=== PATIENT | female | born 1965 | race Caucasian/White ===

== ENCOUNTER 2019-10-15 15:19 | Inpatient (IN) | payer BC ==
[~2019-10-15] VITALS: Ht 172.7 cm; Wt 80.7 kg
--- NOTE | 2019-10-15 16:45 | NUR ---
ADMISSION TO REHAB UNIT. SEE ADMISSION PAPERWORK. NO SIGNS OF DISTRESS. CALL LIGHT WITHIN REACH.
[2019-10-15] MEDS ORDERED: ZYRTEC10 MG PO (17:38)
[2019-10-15] MEDS ORDERED: LASIX20 MG PO (17:39)
[2019-10-15] MEDS ORDERED: CHRONULAC30 ML PO (17:39)
[2019-10-15] MEDS ORDERED: ZOLOFT100 MG PO (17:40)
[2019-10-15] MEDS ORDERED: ZOFRAN ODT4 MG/UDTAB PO (17:40)
[2019-10-15] MEDS ORDERED: ESTRACE1 MG PO (17:41)
[2019-10-15] MEDS ORDERED: PROTONIX40 MG PO (17:41)
[2019-10-15] MEDS ORDERED: K-DUR20 MEQ PO (17:42)
[2019-10-15] MEDS ORDERED: ALDACTONE50 MG PO (17:42)
[2019-10-15] MEDS ORDERED: MIRAPEX0.125 MG PO (17:43)
[2019-10-15 17:55] VITALS: BP 148/94
--- NOTE | 2019-10-15 20:35 | NUR ---
PATIENT RECEIVED LAYING BED. VITAL SIGNS & ASSESSMENT DONE. NO C/O PAIN OR DISTRESS. BED LOW. CALL LIGHT WITHIN REACH. WILL CONTINUE TO MONITOR.
[2019-10-15 22:13] VITALS: BP 127/76
--- NOTE | 2019-10-16 03:33 | NUR ---
I have reviewed this patient and I concur with the Shift Assessment completed by the Licensed Practical Nurse today this shift.
--- NOTE | 2019-10-16 04:10 | NUR ---
PATIENT AWAKE USED CALL LIGHT FOR ASSIST ONTO BED BUSTOS. PATIENT HAD VOID & WATERY STOOL. PATIENT CLEANED. TURNED TO LEFT SIDE. BED LOW. CALL LIGHT WITHIN REACH. WILL CONTINUE TO MONITOR.
[2019-10-16 08:44] LABS: BASOPHILS 0.4 % (0-2); EOSINOPHILS 2.4 % (0-7); HEMATOCRIT 26.7 % (36.0-48.0); HEMOGLOBIN 8.7 g/dL (12-16); IMMATURE GRANULOCYTES 0.3 % (0-5); LYMPHOCYTES 25.9 % (15-50); MCH 34.4 pg (26.0-34.0); MCHC 32.6 g/dL (31.0-37.0); MCV 105.5 fL (80.0-100.0); MEAN PLATELET VOLUME 9.6 fL (7.4-10.4); MONOCYTES 6.9 % (2-11); NEUTROPHILS 64.1 % (40-80); PLATELET COUNT 123 10x3/uL (130-400); RBC 2.53 10x6/uL (4.00-5.40); RDW 16.7 % (11.5-14.5); WBC 7.4 10x3/uL (4.8-10.8)
[2019-10-16 08:53] LABS: ANION GAP 11.5 mmol/L (8-16); CALCIUM 8.5 mg/dL (8.5-10.1); CARBON DIOXIDE 24.9 mmol/L (21.0-32.0); POTASSIUM - SERUM 3.4 mmol/L (3.5-5.1)
[2019-10-16 09:41] VITALS: BP 136/85
[2019-10-16 13:55] VITALS: Ht 172.7 cm; Wt 80.7 kg
--- NOTE | 2019-10-16 14:51 | NUR ---
LAYING DOWN IN BED RESTING QUIETLY. ABDOMEN IS LARGE AND FIRM. IS A MAX ASST TO TRANSFER. MAE HAS SKIN TEAR AND IT WAS CLEANSED AND REDRESSED. EYE SCLERA IS YELLOW COLORED. 3+ EDEMA BOTH FEET. CALL LIGHT IN REACH
[2019-10-16 22:47] VITALS: BP 129/81
--- NOTE | 2019-10-16 23:50 | NUR ---
PT ASSISTED TO USE BEDPAN. VOIDED WITHOUT DIFFICULTY.
--- NOTE | 2019-10-17 02:36 | NUR ---
I have reviewed this patient and I concur with the Shift Assessment completed by the Licensed Practical Nurse today this shift.
[2019-10-17 08:00] VITALS: BP 121/72
--- NOTE | 2019-10-17 11:47 | NUR ---
HAS BEEN UP WORKING WITH THERAPY. DENIES NEEDS OR C/O.
--- NOTE | 2019-10-17 16:15 | NUR ---
BED BATH GIVEN. DSG TO BUTTOCKS CHANGED. SHE WAS INCONT OF STOOL. WOUNDS TO BUTTOCKS ARE ALMOST HEALED. MEPILEX RE-APPLIED AND PT PROPED UP ON SIDE. F/C DRAINING CLEAR YELLOW URINE.
--- NOTE | 2019-10-17 19:32 | NUR ---
PT IS RESTING IN BED WITH EYES OPEN. ALERT AND ORIENTED X 3. DEINES ACUTE DISCOMFORT AT THIS TIME. NO NEEDS VOICED. ABD NOTED TO BE DISTENTDED, AND MORE FIRM THAN YESTERDAY. SR'S ARE UP X 2 IN BED. CALL LIGHT AND BEDSIDE TABLE ARE WITHIN EASY REACH.
[2019-10-17 20:30] VITALS: BP 125/81
--- NOTE | 2019-10-17 22:07 | NUR ---
PT IS RESTING IN BED WITH EYES OPEN. ASSISTED ONTO BEDPAN FREQUENTLY. NO RESULTS MOST TIMES.
--- NOTE | 2019-10-18 00:43 | NUR ---
I have reviewed this patient and I concur with the Shift Assessment completed by the Licensed Practical Nurse today this shift.
--- NOTE | 2019-10-18 02:59 | NUR ---
PT ON AND OFF BEDPAN ALL NIGHT WITH ONLY DRIBBLES OF URINE NOTED. PT VOICING COMPLAINT OF URGENT NEED TO VOID, AND ELEVATED PAIN. NEW ORDER TO IN AND OUT CATH RECIEVED.
--- NOTE | 2019-10-18 03:04 | NUR ---
PT REFUSED IN AND OUT CATHETER.
--- NOTE | 2019-10-18 06:37 | NUR ---
PT RESTING IN BED WITH EYES OPEN. ASSISTED TO THE BEDPAN AT THIS TIME.
[2019-10-18 08:00] VITALS: BP 136/84
--- NOTE | 2019-10-18 14:04 | NUR ---
SITTING IN WC IN ROOM. HAS BEEN SITTING UP FOR A COUPLE OF HOURS AND IS TOLERATING IT WELL. HER ABD IS VERY DISTENDED AND HER APPETITE IS POOR. SHE STATES SHE FEELS FULL ALL THE TIME AND NOT HUNGRY. SHE IS A MAX X2 TRANSFER ASST. SHE HAS 3+ EDEMA TO BLE.
[2019-10-18 17:49] LABS: NITRITE NEGATIVE (NEGATIVE)
[2019-10-18 17:50] LABS: BILIRUBIN NEGATIVE (NEGATIVE); GLUCOSE NEGATIVE (NEGATIVE); KETONE NEGATIVE (NEGATIVE); UROBILINOGEN NORMAL (NORMAL)
--- NOTE | 2019-10-18 19:41 | NUR ---
PT IS RESTING IN BED WITH EYES OPEN. ALERT AND ORIENTED X 3. DENIES ACUTE PAIN OR DISCOMFORT AT THIS TIME. ABD IS ROUND AND MODERATELY HARD TO TOUCH FROM ASCITES. PT DENIES ANY NEEDS AT THIS TIME. SR'S ARE UP X 2 IN BED. CALL LIGHT AND BEDSIDE TABLE ARE WITHIN EASY REACH.
[2019-10-18 20:00] VITALS: BP 122/78
--- NOTE | 2019-10-18 22:58 | NUR ---
PT RESTING IN BED WITH EYES CLOSED. REQUESTS HELP TO TURN AND REPOSITION PRN.
--- NOTE | 2019-10-19 00:50 | NUR ---
I have reviewed this patient and I concur with the Shift Assessment completed by the Licensed Practical Nurse today this shift.
--- NOTE | 2019-10-19 04:38 | NUR ---
RESTING IN BED WITH EYES CLOSED.
[2019-10-19 08:00] VITALS: BP 126/81
[2019-10-19 08:02] LABS: BASOPHILS 0.3 % (0-2); EOSINOPHILS 2.9 % (0-7); HEMATOCRIT 25.4 % (36.0-48.0); HEMOGLOBIN 8.6 g/dL (12-16); IMMATURE GRANULOCYTES 0.3 % (0-5); LYMPHOCYTES 26.4 % (15-50); MCH 35.1 pg (26.0-34.0); MCHC 33.9 g/dL (31.0-37.0); MCV 103.7 fL (80.0-100.0); MEAN PLATELET VOLUME 8.9 fL (7.4-10.4); MONOCYTES 8.1 % (2-11); RBC 2.45 10x6/uL (4.00-5.40); RDW 16.6 % (11.5-14.5); WBC 6.6 10x3/uL (4.8-10.8)
[2019-10-19 08:11] LABS: PLATELET COUNT 98 10x3/uL (130-400)
[2019-10-19 08:22] LABS: ANION GAP 12.2 mmol/L (8-16); CALCIUM 8.3 mg/dL (8.5-10.1); CARBON DIOXIDE 23.6 mmol/L (21.0-32.0); CREATININE - SERUM 0.9 mg/dL (0.6-1.3); POTASSIUM - SERUM 3.8 mmol/L (3.5-5.1)
[2019-10-19 09:34] LABS: INR 1.75 (0.85-1.17); PROTIME 20.2 SECONDS (11.6-15.0)
[2019-10-19 10:51] LABS: PLATELET ESTIMATE DECREASED
[2019-10-19 10:52] LABS: ANISOCYTOSIS OCC; HYPOCHROMASIA OCC; POLYCHROMASIA OCC; ROULEAUX OCC
--- NOTE | 2019-10-19 16:42 | RHP ---
PATIENT: MANDI LEHMAN MEDICAL RECORD: [id number] ACCOUNT: [id number] LOCATION:[id number] : 65 ADMISSION DATE: 10/15/19 REHABILITATION HISTORY AND PHYSICAL EXAMINATION POST ADMISSION PHYSICIAN EXAMINATION ADMITTING DIAGNOSIS: Alcohol-induced myopathy. HISTORY OF PRESENT ILLNESS: The patient is a 53-year-old female patient brought in via EMS secondary to liver failure secondary to alcohol use. She stated that she has been walking at home and using a rolling walker to get around, but had gotten progressively weaker over the previous couple of weeks to the point she was falling. She had a fall on the day of her acute hospital admit, was unable to get up or bear weight. She hit her head. She caused an abrasion to her occipital region, but no loss of consciousness. She was last seen in the hospital in August at EMS where she was started on Lasix, spironolactone, lactulose at this time. States that her last alcohol intake was in June. She is currently being monitored closely for lab values, cognition, medication adjustment, monitoring, pain control. She has got decreased activity tolerance. She has got balance disturbance and decreased range of motion, decreased strength, impaired mobility, dyspnea on exertion, high fall risk and self-care deficits. These are all barriers to her discharge home. Lives at home alone, was independent with ADLs and mobility prior to this. She is currently set up for mod assist with ADLs and mod assist with mobility and has lower extremity weakness and feels like her legs are going to give out with her. She and her family would like for her to return home at her prior level of functioning or better. COMORBIDITIES: Include chronic liver failure, acute fall, macrocytic anemia, abnormal liver values, elevated CK, pleural effusion, weakness, proximal muscle weakness. She had a history of alcohol addiction and abuse, elevated ammonia. PAST MEDICAL HISTORY: Significant for alcohol addiction, blood transfusion; gastroesophageal reflux disease and hypertension. PAST SURGICAL HISTORY: Includes breast reduction. She has had a D&C of her uterus, hysterectomy and ovary removed. ALLERGIES: DILAUDID. CURRENT MEDICATIONS: Include estradiol 1 mg daily, potassium 20 mEq daily, Zoloft 100 mg daily, she is on fexofenadine 60 mg b.i.d., spironolactone 50 mg daily, lactulose 30 cc t.i.d., furosemide 20 mg b.i.d., Mirapex 0.125 mg bedtime and Zofran p.r.n. nausea and vomiting. HABITS: No current alcohol or tobacco use. She did last drink back in June. FAMILY HISTORY: Noncontributory. SOCIAL HISTORY: The patient hopes to return back home and get back to her prior level of functioning. REVIEW OF SYSTEMS: GENERAL: Does complain of weakness and fatigue. HEENT: Denies cold, cough, or congestion. HISTORY AND PHYSICAL [id number] MANDI LEHMAN CARDIOVASCULAR: Denies chest pain. PHYSICAL EXAMINATION: VITAL SIGNS: Stable, afebrile. GENERAL: A well-developed female in no acute distress upon exam. HEENT: Normocephalic and atraumatic. Mucosa moist. NECK: Supple. No lymphadenopathy. LUNGS: Clear in upper miller. HEART: Regular rate and rhythm. No murmurs, rubs, or gallops. ABDOMEN: Soft, benign, and nondistended. She does have hepatosplenomegaly appreciated. EXTREMITIES: No clubbing, cyanosis or edema. NEUROLOGIC: She is a little bit slow to mentate, but mainly intact. LABORATORY DATA: Her white count is 7.4, H&H of 8.6 and 26.7 and platelet count was noted to be 123, MCV is 105.5. Her chemistries are pending. ASSESSMENT: This is a 53-year-old female patient admitted to rehab with a working diagnosis of alcohol-induced myopathy. The patient has potential to make improvement. We instituted the following multidisciplinary therapies including, but not limited to physical, occupational, respiratory, speech, nutritional services, prosthetics and orthotics. Given her complex medical conditions and risks for more complications, rehabilitation services cannot be provided at a low level of care such as skilled nurse facility. PLAN: 1. [facility] therapy to include the following disciplines; A. Physical therapy to improve gait, all transfer skills and bed mobility to a modified independent level. B. Occupational therapy to a modified independent level. C. Case management to assist with discharge planning and placement options. D. Nutrition to assist with nutritional needs. E. Rehabilitation nursing to assist in monitoring the patient's underlying medical conditions and to assist with any type of bowel or bladder management. 2. The patient's current medication and medical care will be continued. 3. The patient will be placed on standard fall precautions. 4. The patient's estimated length of stay is approximately 7-10 days. 5. We will discuss the patient during care team staff meeting this week and we will see again in the a.m. TRANSINT:[id number] Voice Confirmation ID: [id number] DOCUMENT ID: [id number] [facility] notes whether there has been none or any medical/functional change since admission: - No change since pre-admission screen. [facility] attests patient continues to be appropriate for IRF: - Continues to be appropriate. HISTORY AND PHYSICAL [id number] MANDI LEHMAN,NATALIIA GARCIA MD at 1642 CC: [id number] DICTATION DATE: 10/16/19 0857 EMBEDDED LINUX ENGINEER: 10/16/19 1045 ADM IN [address] [address]
--- NOTE | 2019-10-19 18:29 | NUR ---
SITTING UP IN BED WORKING ON PUZZLE. ATE SUPPER AND KNOWS SHE WILL BE NPO TONIGHT FOR PARACENTESIS TOMORROW. ABD VERY LARGE AND FIRM. CALL LIGHT IN REACH
--- NOTE | 2019-10-19 19:30 | NUR ---
PT IS RESTING IN BED WITH EYES OPEN. ALERT AND ORIENTED X 3. DENIES ACUTE PAIN OR DISCOMFORT AT THIS TIME. NO NEEDS VOICED. ABDOMEN IS DISTENDED AND FIRM TO THE TOUCH. PT HAPPY TO BE SCHEDULED FOR A PARACENTESIS TOMORROW. SR'S ARE UP X 2 IN BED. CALL LIGHT AND BEDSIDE TABLE ARE WITHIN EASY REACH.
--- NOTE | 2019-10-19 21:57 | NUR ---
PT ASSISTED TO TURN AND REPOSITION IN BED. NO FURTHER NEEDS VOICED.
[2019-10-19 22:21] VITALS: BP 135/81
[2019-10-20] VITALS (8 sets, daily range): BP systolic 98–123; BP diastolic 59–76
--- NOTE | 2019-10-20 00:29 | NUR ---
I have reviewed this patient and I concur with the Shift Assessment completed by the Licensed Practical Nurse today this shift.
--- NOTE | 2019-10-20 04:40 | NUR ---
RESTING IN BED WITH EYES CLOSED.
[2019-10-20 07:16] LABS: BASOPHILS 0.5 % (0-2); EOSINOPHILS 2.4 % (0-7); HEMATOCRIT 24.1 % (36.0-48.0); HEMOGLOBIN 8.1 g/dL (12-16); IMMATURE GRANULOCYTES 0.3 % (0-5); LYMPHOCYTES 27.9 % (15-50); MCH 34.6 pg (26.0-34.0); MCHC 33.6 g/dL (31.0-37.0); MEAN PLATELET VOLUME 9.3 fL (7.4-10.4); MONOCYTES 8.4 % (2-11); NEUTROPHILS 60.5 % (40-80); PLATELET COUNT 96 10x3/uL (130-400); RBC 2.34 10x6/uL (4.00-5.40); RDW 16.5 % (11.5-14.5); WBC 6.2 10x3/uL (4.8-10.8)
[2019-10-20 07:34] LABS: ALBUMIN 1.8 g/dL (3.4-5.0); ANION GAP 9.7 mmol/L (8-16); BILIRUBIN - TOTAL 3.83 mg/dL (0.2-1.3); CALCIUM 8.5 mg/dL (8.5-10.1); CARBON DIOXIDE 25.2 mmol/L (21.0-32.0); CREATININE - SERUM 0.9 mg/dL (0.6-1.3); POTASSIUM - SERUM 3.9 mmol/L (3.5-5.1); PROTEIN - SERUM 5.7 g/dL (6.4-8.2)
--- NOTE | 2019-10-20 08:00 | NUR ---
SHIFT ASSMT COMPLETED.CL IN REACH.
[2019-10-20 08:30] LABS: APTT 40.5 SECONDS (22.8-39.4); INR 1.68 (0.85-1.17); PROTIME 19.6 SECONDS (11.6-15.0)
--- NOTE | 2019-10-20 19:28 | NUR ---
AWAKE AND ALERT. RESTING IN BED WITH RESPIRATIONS UNALBORED. SALINE LOCK INTACT TO LEFT HAND WITH NO SIGNS OF INFILTRATION. SKIN TONE IS JAUNDICED. HAD PARENTCENTISIS TODAY AND IT WAS REPORTTED THAT SHE HAD 8.1 LITERS REMIVED. PARENCENTISIS SITE INTACT. NO ACUTE DISTRESS NOTED.
--- NOTE | 2019-10-21 00:44 | NUR ---
CONTINUES RESTING IN BED WITH NO DISTRESS NOTED.
--- NOTE | 2019-10-21 05:08 | NUR ---
QUIET HOURS. NO ACUTE CHANGES IN CONDITION THIS SHIFT. SALINE LOCK INTACT IN LEFT HAND. NO DISTRESS NOTED.
[2019-10-21 08:00] VITALS: BP 90/53
--- NOTE | 2019-10-21 08:00 | NUR ---
REPORT RECIEVED,BREAKFAST GIVEN.CL IN REACH.
--- NOTE | 2019-10-21 16:08 | NUR ---
Nutrition Follow-up: Discussed in careteam meeting. Pt has 8.3L removed via paracentesis yesterday. Diet: Regular PO intake: 100% x 1 meal recorded Last BM: 10/18/19. WT: 178# (10/16/19) Meds noted: lactulose, lasix. Labs reviewed. Recommend continue current diet. RD following.
--- NOTE | 2019-10-21 16:28 | NUR ---
CLINICAL UPDATES FAXED TO [facility] , AUTH. # [id number] WITH CONFORMATION RECIEVED.
--- NOTE | 2019-10-21 20:00 | NUR ---
PATIENT RECEIVED SITTING UP IN WHEELCHAIR. ASSESSMENT & VITAL SIGNS DONE. NO C/O PAIN OR DISTRESS. BED LOW. CALL LIGHT WITHIN REACH. WILL CONTINUE TO MONITOR.
[2019-10-21 22:11] VITALS: BP 119/69
--- NOTE | 2019-10-22 03:48 | NUR ---
PATIENT EYES CLOSED. RESPIRATIONS 18 & EVEN. BED LOW. ALARM ON. CALL LIGHT WITHIN REACH. WILL CONTINUE TO MONITOR.
--- NOTE | 2019-10-22 04:37 | NUR ---
I have reviewed this patient and I concur with the Shift Assessment completed by the Licensed Practical Nurse today this shift.
[2019-10-22 08:43] VITALS: BP 113/70
--- NOTE | 2019-10-22 15:24 | NUR ---
WALKING IN MENESES WITH THERAPY
--- NOTE | 2019-10-22 17:48 | NUR ---
SITTING IN WC IN ROOM EATING SUPPER. ABD IS SOFTER AND SMALLER IN SIZE SINCE PARACENTESIS. HER APPETITE IS BETTER BUT BOTH ANKLES STILL HAVE 4+ EDEMA TO THEM. CALL LIGHT IN REACH
--- NOTE | 2019-10-22 19:49 | NUR ---
PATIENT RECEIVED SITTING UP IN WHEELCHAIR. ASSESSMENT & VITAL SIGNS DONE. PATIENT TOILETED & RETURNED TO HER LOW BED. ALARM ON. CALL LIGHT WITHIN REACH. WILL CONTINUE TO MONITOR.
[2019-10-22 22:10] VITALS: BP 118/69
[2019-10-23] VITALS (7 sets, daily range): BP systolic 91–125; BP diastolic 49–69
--- NOTE | 2019-10-23 02:56 | NUR ---
I have reviewed this patient and I concur with the Shift Assessment completed by the Licensed Practical Nurse today this shift.
[2019-10-23 07:38] LABS: CALCIUM 8.3 mg/dL (8.5-10.1); CARBON DIOXIDE 25.9 mmol/L (21.0-32.0); CREATININE - SERUM 0.9 mg/dL (0.6-1.3); POTASSIUM - SERUM 3.9 mmol/L (3.5-5.1)
[2019-10-23 07:55] LABS: BASOPHILS 0.5 % (0-2); EOSINOPHILS 2.3 % (0-7); HEMATOCRIT 24.3 % (36.0-48.0); HEMOGLOBIN 8.1 g/dL (12-16); IMMATURE GRANULOCYTES 0.2 % (0-5); LYMPHOCYTES 27.2 % (15-50); MCH 34.5 pg (26.0-34.0); MCHC 33.3 g/dL (31.0-37.0); MCV 103.4 fL (80.0-100.0); MEAN PLATELET VOLUME 9.8 fL (7.4-10.4); MONOCYTES 7.2 % (2-11); NEUTROPHILS 62.6 % (40-80); PLATELET COUNT 106 10x3/uL (130-400); RBC 2.35 10x6/uL (4.00-5.40); RDW 16.4 % (11.5-14.5)
--- NOTE | 2019-10-23 11:04 | NUR ---
RECIEVED CALL THAT PATIENT HAS BEEN APPROVED FOR 7 MORE DAYS PER VANESSA AT [facility] ( [facility]) UPDATES DUE 10/28/19. WILL CONTINUE TO FOLLOW WITH PATIENT.
--- NOTE | 2019-10-23 14:06 | NUR ---
CARE TEAM MEETING: PATIENT IS PROGRESSING IN THERAPY. TENATIVE DISCHARGE DATE IS 10/31/19. WILL CONTINUE TO FOLLOW WITH PATIENT.
--- NOTE | 2019-10-23 15:03 | NUR ---
IN THERAPY. HAS BEEN UP IN WC MOST OF DAY SITTING IN HER ROOM. DENIES INCREASING PAIN. ABD STILL MUCH FLATTER. SHE DENIES SOB. ANKLES STILL HAVE4+ EDEMA TO THEM.
--- NOTE | 2019-10-23 19:00 | NUR ---
PT IS RESTING IN BED WITH EYES OPEN. ALERT AND ORIENTED X 3. DENIES ACUTE DISCOMFORT AT THIS TIME. PT STATES SHE IS DOING MUCH BETTER SINCE THE ABDOMINAL FLUID WAS REMOVED THIS WEEK. CONSENT FOR BLOOD TRANSFUSION SIGNED AT THIS TIME. SR'S ARE UP X 2 IN BED. CALL LIGHT AND BEDSIDE TABLE ARE WITHIN EASY REACH.
--- NOTE | 2019-10-23 19:45 | NUR ---
PT RESTING IN BED WITH EYES OPEN. 1ST UNIT OF BLOOD STARTED AT THIS TIME. VSS. NO IMMEDIATE REACTION NOTED.
--- NOTE | 2019-10-23 20:00 | NUR ---
PT RESTING IN BED WITH EYES OPEN. VSS. NO ADVERSE REACTIONS TO BLOOD TRANSFUSION NOTED.
--- NOTE | 2019-10-23 21:25 | NUR ---
1ST UNIT OF BLOOD FINISHED. VSS. NO ADVERSE REACTION NOTED.
--- NOTE | 2019-10-23 22:00 | NUR ---
SECOND UNIT OF BLOOD HUNG AT THIS TIME. VSS. NO ADVERSE REACTION NOTED.
--- NOTE | 2019-10-23 23:15 | NUR ---
PT RESTING IN BED WITH EYES CLOSED. BLOOD INFUSING WITHOUT DIFFICULTY. VSS. NO ADVERSE REACTION NOTED.
--- NOTE | 2019-10-24 00:19 | NUR ---
I have reviewed this patient and I concur with the Shift Assessment completed by the Licensed Practical Nurse today this shift.
[2019-10-24 00:30] VITALS: BP 105/59
--- NOTE | 2019-10-24 00:30 | NUR ---
BLOOD FINISHED AT THIS TIME. NO ADVERSE REACTION NOTED. VSS.
--- NOTE | 2019-10-24 04:32 | NUR ---
RESTING IN BED WITH EYES CLOSED.
[2019-10-24 07:00] VITALS: BP 130/78
--- NOTE | 2019-10-24 07:40 | NUR ---
A/A/OX4. SITTING UP IN BED WATCHING TV AND VOICES NOT COMPLAINTS OR REQUESTS. ASSESSMENT COMPLETED AND WILL CONTINUE POC. ASSISTED UP TO W/C AND TO BATHROOM AND DID WELL WITH MINIMAL ASST. SL PATENT TO LEFT AC WITH SOME BRUISING AT SITE. NOTED TO HAVE 4+ DEPENDENT EDEMA BLE. SIDERAILS UP X 2, BED IN LOWEST POSITION AND CALL LIGHT IN REACH.
--- NOTE | 2019-10-24 15:10 | NUR ---
I have reviewed this patient and I concur with the Shift Assessment completed by the Licensed Practical Nurse today this shift.
--- NOTE | 2019-10-24 19:37 | NUR ---
PT IS RESTING IN BED WITH EYES OPEN. ALERT AND ORIENTED X 3. DENIES ACUTE PAIN OR DISCOMFORT AT THIS TIME. PT DENIES PAIN OR DISCOMFORT. SR'S ARE UP X 2 IN BED. CALL LIGHT AND BEDSIDE TABLE ARE WITHIN EASY REACH.
[2019-10-24 20:47] VITALS: BP 131/79
--- NOTE | 2019-10-24 22:15 | NUR ---
PT RESTING IN BED WITH EYES CLOSED. NO DISTRESS NOTED.
--- NOTE | 2019-10-25 01:00 | NUR ---
I have reviewed this patient and I concur with the Shift Assessment completed by the Licensed Practical Nurse today this shift.
--- NOTE | 2019-10-25 02:07 | NUR ---
PT VOICING COMPLAINT OF REFLUX. ONE TIME DOSE OF CARAFATE GIVEN PER RECOMENDATION OF THE ER DOCTOR. THIS HAS NOT HELPED. SHE IS VOICING COMPLAINT OF MORE AND MORE PAIN. DR ORNELAS CALLED. I RECIEVED HIS VOICE MAIL ONLY. MESSAGE LEFT. AFTER HOURS NUMBER CALLED. THEY ARE PAGING KAREN PEREZ APN TO CALL ME NOW.
--- NOTE | 2019-10-25 02:48 | NUR ---
[facility] CALLED: RE NO CALL FROM KAREN PEREZ. I ASKED HIM TO PAGE HER AGAIN, SINCE SHE HAS NOT CALLED. THE PHONE WENT IMMEDIATELY TO A BUSY SIGNAL.
[2019-10-25 03:36] VITALS: BP 112/74
--- NOTE | 2019-10-25 05:56 | NUR ---
PT RESTING IN BED WITH EYES OPEN. VOICED COMPLAINT OF VARYING ABD PAIN LEVEL OF 5-9 OFF AND ON. SHE STATED SHE DID FALL ASLEEP FOR A LITTLE WHILE. NO CALL BACK RECIEVED FROM MD OR MANAGER DEVELOPMENTAL.
[2019-10-25 10:08] VITALS: BP 103/57
--- NOTE | 2019-10-25 14:30 | NUR ---
I have reviewed this patient and I concur with the Shift Assessment completed by the Licensed Practical Nurse today this shift.
--- NOTE | 2019-10-25 19:35 | NUR ---
PT IS RESTING IN BED WITH EYES OPEN. SHE STATES SHE HAS BEEN HURTING ALL DAY, BUT FEELS MUCH BETTER THAN LAST NIGHT. SHE STATES DR ORNELAS TOLD HER HE WOULD DO A ABD. ULTRASOUND IN THE AM, WITH A POSSIBLE PERICENTESIS. NO NEEDS VOICED AT THIS TIME. SR'S ARE UP X 2 IN BED. CALL LIGHT AND BEDSIDE TABLE ARE WITHIN EASY REACH.
[2019-10-25 20:30] VITALS: BP 125/75
--- NOTE | 2019-10-25 23:36 | NUR ---
RESTING IN BED WITH EYES CLOSED.
--- NOTE | 2019-10-26 01:07 | NUR ---
I have reviewed this patient and I concur with the Shift Assessment completed by the Licensed Practical Nurse today this shift.
--- NOTE | 2019-10-26 05:55 | NUR ---
PT RESTING IN BED WITH EYES OPEN. NO NEEDS VOICED.
[2019-10-26 07:47] LABS: BASOPHILS 0.4 % (0-2); EOSINOPHILS 2.5 % (0-7); HEMATOCRIT 28.2 % (36.0-48.0); HEMOGLOBIN 9.6 g/dL (12-16); IMMATURE GRANULOCYTES 0.1 % (0-5); LYMPHOCYTES 22.9 % (15-50); MCH 33.4 pg (26.0-34.0); MCV 98.3 fL (80.0-100.0); MEAN PLATELET VOLUME 9.5 fL (7.4-10.4); MONOCYTES 8.1 % (2-11); PLATELET COUNT 88 10x3/uL (130-400); RBC 2.87 10x6/uL (4.00-5.40); RDW 17.5 % (11.5-14.5); WBC 6.9 10x3/uL (4.8-10.8)
[2019-10-26 07:51] LABS: ANION GAP 8.4 mmol/L (8-16); CALCIUM 8.5 mg/dL (8.5-10.1); CARBON DIOXIDE 25.1 mmol/L (21.0-32.0); CREATININE - SERUM 0.9 mg/dL (0.6-1.3); POTASSIUM - SERUM 3.5 mmol/L (3.5-5.1)
[2019-10-26 08:14] VITALS: BP 122/67
[2019-10-26 08:33] LABS: PLATELET ESTIMATE DECREASED
[2019-10-26 09:54] LABS: INR 1.8 (0.85-1.17); PROTIME 20.6 SECONDS (11.6-15.0)
--- NOTE | 2019-10-26 15:03 | NUR ---
STILL NPO FOR ABD ULTRASOUND. NURSE HAS FOLLOW UP WITH US TO SEE ABOUT APPX TIME AND IT IS STILL UNKNOWN. PT ABD IS GETTING LARGER SINCE LAST PARACENTESIS AND SHE C/O DISCOMFORT.
--- NOTE | 2019-10-26 15:16 | NUR ---
Nutrition Follow-up: Diet: Regular PO intake: none recorded recently, was ~54% average x last 6 meals recorded. She states that her appetite is "better." States that she has been ordering Ensure with her Breakfast tray from her menu. Last BM: 10/26/19. WT: 178# (10/16/19), no new weight Meds noted: lactulose, lasix. Labs reviewed- ammonia WNL now. Recommend continue current diet. She will order Ensure from menu when she feels like she needs it. Recommend getting new weight on patient. RD will continue to follow.
--- NOTE | 2019-10-26 20:00 | NUR ---
PT IS RESTING QUIETLY IN BED WITH EYES OPEN. ALERT AND ORIENTED X 3. DENIES ACUTE DISCOMFORT AT THIS TIME. NO SOB NOTED. ABD IS DISTENDED AND FIRM TO TOUCH. 4 + EDEMA NOTED TO BLE. PT ENCOURAGED TO KEEP FEET ELEVATED ON PILLOWS MUCH POSSIBLE. SR'S ARE UP X 2 IN BED. CALL LIGHT AND BEDSIDE TABLE ARE WITHIN EASY REACH.
[2019-10-26 20:52] VITALS: BP 144/85
--- NOTE | 2019-10-26 22:40 | NUR ---
PT IS RESTING QUIETLY IN BED WITH EYES CLOSED. NO ACUTE DISTRESS NOTED.
--- NOTE | 2019-10-27 00:21 | NUR ---
I have reviewed this patient and I concur with the Shift Assessment completed by the Licensed Practical Nurse today this shift.
--- NOTE | 2019-10-27 04:02 | NUR ---
PT RESTING IN BED WITH EYES OPEN. NO NEEDS VOICED.
[2019-10-27 07:15] LABS: INR 1.76 (0.85-1.17); PROTIME 20.3 SECONDS (11.6-15.0)
[2019-10-27 07:52] VITALS: BP 107/74
--- NOTE | 2019-10-27 14:11 | NUR ---
SITTING UP IN WC IN ROOM VISITING WITH PARENTS. DENIES NEEDS OR C/O
--- NOTE | 2019-10-27 15:16 | NUR ---
CLINICAL UPDATES FAXED TO [employer] FOR AN EXTENTION OF STAY, AUTH. # [id number], WITH CONFORMATION RECIEVED.
--- NOTE | 2019-10-27 18:30 | NUR ---
HAS BEEN UP IN WC FOR MOST OF DAY. TOILETED HER SELF WITH NO ASST. ABD STILL DISTENDED.
--- NOTE | 2019-10-27 19:40 | NUR ---
AWAKE AND ALERT. RESTING IN BED WITH RESPIRATIONS UNLABORED. SKIN JAUNDICED. ABDOMEN DISTENDED AND SEMI0-FIRM. 4+ EDEMA NOTED IN BILATERAL LOWER EXTREMITIES. NO ACUTE DISTRESS NOTED. CALL LIGHT IN REACH.
[2019-10-27 21:04] VITALS: BP 118/75
--- NOTE | 2019-10-28 00:57 | NUR ---
ASSISTED TO BATHROOM AND BACK TO BED. NO ACUTE DISTRESS NOTED. CALL LIGHT IN REACH.
--- NOTE | 2019-10-28 03:11 | NUR ---
CONTINUES SLEEPING WITH NO DISTRESS NOTED.
--- NOTE | 2019-10-28 05:34 | NUR ---
QUIET HOURS. RESTING IN BED WITH RESPIRATIONS UNLABORED. NPO FOR NOW PENDING AM PROCEDURE. LAB RESULTS PENDING. WILL MONITOR. NO DISTRESS NOTED.
[2019-10-28 06:18] LABS: BASOPHILS 0.3 % (0-2); EOSINOPHILS 2.4 % (0-7); HEMATOCRIT 29.8 % (36.0-48.0); HEMOGLOBIN 9.8 g/dL (12-16); IMMATURE GRANULOCYTES 0.2 % (0-5); MCH 33.1 pg (26.0-34.0); MCHC 32.9 g/dL (31.0-37.0); MEAN PLATELET VOLUME 9.4 fL (7.4-10.4); NEUTROPHILS 61.1 % (40-80); PLATELET COUNT 83 10x3/uL (130-400); RBC 2.96 10x6/uL (4.00-5.40); RDW 17.2 % (11.5-14.5); WBC 5.7 10x3/uL (4.8-10.8)
[2019-10-28 06:20] LABS: MCV 100.7 fL (80.0-100.0)
[2019-10-28 06:47] LABS: ANION GAP 9.1 mmol/L (8-16); CALCIUM 8.3 mg/dL (8.5-10.1); CREATININE - SERUM 0.9 mg/dL (0.6-1.3)
[2019-10-28 06:54] LABS: PLATELET ESTIMATE DECREASED
[2019-10-28 07:02] LABS: PROTIME 20.1 SECONDS (11.6-15.0)
[2019-10-28 07:06] LABS: POTASSIUM - SERUM 4.1 mmol/L (3.5-5.1)
[2019-10-28 07:13] LABS: INR 1.73 (0.85-1.17)
[2019-10-28 07:57] VITALS: BP 133/61
--- NOTE | 2019-10-28 08:00 | NUR ---
REPORT RECIEVED THIS AM.BREAKFAST GIVEN.CL IN REACH.
--- NOTE | 2019-10-28 15:00 | NUR ---
Nutrition Follow-up: Diet: Regular PO intake: ~54% average x last 6 meals. She was OOR today when I went to go visit her but yesterday she told me that she has been ordering and drinking Ensure. Last BM: 10/26/19. WT: 178# (10/16/19), no new weight Meds noted: lasix, lactulose. Labs reviewed Will add Ensure with meals to diet order. Recommend continue current diet. Encourage PO intake. RD following.
--- NOTE | 2019-10-28 20:34 | NUR ---
AWAKE AND ALERT. RESTING IN BED. 2 UNITS FFP'S INFUSING TO SITE IN RIGHT ARM WITH NO SINGS OF INFILTRATION. NO ADVERSE REACTION NOTED. RESPRIATIONS UNLABORED. AFEBRILE. CALL LIGHT IN REACH.
[2019-10-28 22:06] VITALS: BP 100/59
[2019-10-29] VITALS (7 sets, daily range): BP systolic 97–137; BP diastolic 52–74
--- NOTE | 2019-10-29 01:19 | NUR ---
RESTING IN BED WITH RESPIRATIONS UNLABORED. NO DISTRESS NOTED. CALL LIGHT IN REACH.
--- NOTE | 2019-10-29 05:24 | NUR ---
QUIET HOURS. RESTING IN BED. NPO FOR POSSIBLE PROCEDURE THIS AM. NO ACUTE CHANGES IN CONDITION THIS SHIFT. NO DISTRESS NOTED.
[2019-10-29 06:04] LABS: BASOPHILS 0.4 % (0-2); HEMATOCRIT 30.3 % (36.0-48.0); HEMOGLOBIN 9.9 g/dL (12-16); IMMATURE GRANULOCYTES 0.2 % (0-5); LYMPHOCYTES 28.6 % (15-50); MCH 33.1 pg (26.0-34.0); MCHC 32.7 g/dL (31.0-37.0); MCV 101.3 fL (80.0-100.0); MONOCYTES 7.1 % (2-11); NEUTROPHILS 61.7 % (40-80); PLATELET COUNT 94 10x3/uL (130-400); RBC 2.99 10x6/uL (4.00-5.40); WBC 5.4 10x3/uL (4.8-10.8)
[2019-10-29 06:15] LABS: APTT 39.1 SECONDS (22.8-39.4); INR 1.47 (0.85-1.17); PROTIME 17.7 SECONDS (11.6-15.0)
[2019-10-29 06:19] LABS: ANION GAP 8.5 mmol/L (8-16); CALCIUM 8.7 mg/dL (8.5-10.1); CARBON DIOXIDE 29.5 mmol/L (21.0-32.0); CREATININE - SERUM 0.9 mg/dL (0.6-1.3)
[2019-10-29 06:48] LABS: PLATELET ESTIMATE DECREASED
--- NOTE | 2019-10-29 08:00 | NUR ---
SHIFT ASSMT COMPLETED.NPO FOR PROCEDURE.
--- NOTE | 2019-10-29 14:50 | NUR ---
TO IR/BED.GOWN ON.
--- NOTE | 2019-10-29 15:28 | NUR ---
RETURNED TO ROOM/BED FROM IR.VS TAKEN AND STABLE.RLQ ABD SIITE INTACT AND DRY.
--- NOTE | 2019-10-29 17:30 | NUR ---
AWAKE AND SUPPER GIVEN.
--- NOTE | 2019-10-29 19:49 | NUR ---
AWAKE AND ALERT. RESTING IN BED. HAD PARENTCENTISIS TODAY AND TOLERATED WELL. PARENCENTESIS SITE GLUED AND NO DRAINAGE NOTED. RESPIRATIONS UNLABORED. NO ACUTE DISTRESS NOTED. CALL LIGHT IN REACH.
--- NOTE | 2019-10-30 01:32 | NUR ---
RESTING IN BED WITHR ESPIRATIONS UNLABORED. NO DISTRESS NOTED.
--- NOTE | 2019-10-30 05:04 | NUR ---
QUIET HOURS. NO ACUTE CHANGES IN CONDITION THIS SHIFT. NO DISTRESS NOTED. CALL LIGHT IN REACH.
[2019-10-30 08:16] LABS: BASOPHILS 0.4 % (0-2); EOSINOPHILS 1.5 % (0-7); HEMOGLOBIN 9.5 g/dL (12-16); LYMPHOCYTES 28.2 % (15-50); MCH 33.6 pg (26.0-34.0); MCHC 32.8 g/dL (31.0-37.0); MCV 102.5 fL (80.0-100.0); MEAN PLATELET VOLUME 8.7 fL (7.4-10.4); MONOCYTES 11.5 % (2-11); NEUTROPHILS 58.4 % (40-80); RBC 2.83 10x6/uL (4.00-5.40); RDW 17.1 % (11.5-14.5); WBC 4.6 10x3/uL (4.8-10.8)
[2019-10-30 08:29] LABS: ANION GAP 9.3 mmol/L (8-16); CALCIUM 8.6 mg/dL (8.5-10.1); CARBON DIOXIDE 29.9 mmol/L (21.0-32.0); CREATININE - SERUM 0.9 mg/dL (0.6-1.3); POTASSIUM - SERUM 4.2 mmol/L (3.5-5.1)
[2019-10-30 08:45] LABS: PLATELET COUNT 71 10x3/uL (130-400)
[2019-10-30] MEDS ORDERED: ULTRAM50 MG PO (09:11)
[2019-10-30 09:44] LABS: PLATELET ESTIMATE DECREASED
--- NOTE | 2019-10-30 10:30 | NUR ---
PATIENT DISCHARGING HOME TODAY WITH FAMILY. [facility] WILL PROVIDE THERAPY AT HOME. PATIENT CHOICE FORM SIGNED FOR HOME HEALTH, NO COMPARE DATA REVIEWED PATIENT IS FAMILAIR WITH [facility] PRIOR TO THIS HOSPITAL VISIT. FM FORM SIGNED AND EXPLAINED, ONE FILED IN CHART AND ONE GIVEN TO PATIENT. DR. PEREZ 11/03/2019 @ 10:00. DISCHARGE INSTRUCTIONS FAXED TO PCP, HOME HEALTH , TO INSURANCE AT , AUTH. # [id number] WITH CONFORMATION RECIEVED AND REVIEWED WITH PATIENT.
[2019-10-30 11:25] VITALS: BP 103/63
--- NOTE | 2019-10-30 15:29 | NUR ---
SPOKE WITH EMILY AT [facility] , PATIENT HAS BEEN APPROVED THROUGH 10/29/19, DISCHARGE CLINICALS FAXED , AUTH. # [id number] WITH CONFORMAION RECIEVED
== END 2019-10-30 16:49 | disposition home health service (06) | DRG 92 ==
LOC: D.REHAB 15:19
PROVIDERS: Radiology Diagnostic Radiology; Specialist; ADMIT Emergency Medicine; ATTEND Emergency Medicine
PROC: 0W9G3ZZ Drainage of Peritoneal Cavity, Percutaneous Approach (ICD-10-PCS; 2019-10-20)
PROC: 0W9G3ZZ Drainage of Peritoneal Cavity, Percutaneous Approach (ICD-10-PCS; principal; 2019-10-29 14:30)
DX: G72.1 Alcoholic myopathy (principal); J90 Pleural effusion, not elsewhere classified; D53.9 Nutritional anemia, unspecified; M62.81 Muscle weakness (generalized); K21.9 Gastro-esophageal reflux disease without esophagitis; K72.10 Chronic hepatic failure without coma; W19.XXXD Unspecified fall, subsequent encounter; I10 Essential (primary) hypertension

== ENCOUNTER 2019-12-01 07:31 | Outpatient (CLI) | payer BC ==
[~2019-12-01] VITALS: Ht 172.7 cm; Wt 74.5 kg
[~2019-12-01 07:31] MED LIST: ALDACTONE50 MG PO; CHRONULAC30 ML PO; ESTRACE1 MG PO; K-DUR20 MEQ PO; LASIX20 MG PO; MIRAPEX0.125 MG PO; PROTONIX40 MG PO; ULTRAM50 MG PO; ZOFRAN ODT4 MG/UDTAB PO; ZOLOFT100 MG PO; ZYRTEC10 MG PO
[2019-12-01 08:24] LABS: BASOPHILS 0.2 % (0-2); EOSINOPHILS 1.2 % (0-7); HEMOGLOBIN 11.1 g/dL (12-16); IMMATURE GRANULOCYTES 0.4 % (0-5); LYMPHOCYTES 22.8 % (15-50); MCH 32.7 pg (26.0-34.0); MCHC 33.6 g/dL (31.0-37.0); MCV 97.3 fL (80.0-100.0); MEAN PLATELET VOLUME 10.7 fL (7.4-10.4); MONOCYTES 7.3 % (2-11); NEUTROPHILS 68.1 % (40-80); RBC 3.39 10x6/uL (4.00-5.40); RDW 16.7 % (11.5-14.5); WBC 5.2 10x3/uL (4.8-10.8)
[2019-12-01 08:25] LABS: PLATELET COUNT 96 10x3/uL (130-400)
[2019-12-01 08:27] LABS: APTT 39.2 SECONDS (22.8-39.4); INR 1.5 (0.85-1.17)
[2019-12-01 08:46] LABS: ALBUMIN 2.6 g/dL (3.4-5.0); ANION GAP 11.8 mmol/L (8-16); BILIRUBIN - TOTAL 2.41 mg/dL (0.2-1.3); CALCIUM 8.5 mg/dL (8.5-10.1); CARBON DIOXIDE 28.2 mmol/L (21.0-32.0); CREATININE - SERUM 0.9 mg/dL (0.6-1.3); PROTEIN - SERUM 6.6 g/dL (6.4-8.2)
[2019-12-01 09:18] VITALS: BP 99/70; Ht 172.7 cm; Wt 74.5 kg
--- NOTE | 2019-12-01 09:18 | NUR ---
SPOKE WITH DOUGLAS ORTIZ RN, STATES NO ISOLATION NEEDED.
--- NOTE | 2019-12-01 10:51 | NUR ---
1040 SEE POST PROCEDURE CHECKLIST FOR VITAL SIGN TRENDS. HAS FAMILY MEMEBER AT SIDE.
[2019-12-01 10:58] LABS: PLATELET ESTIMATE DECREASED
[2019-12-01 10:59] LABS: ANISOCYTOSIS OCC
--- NOTE | 2019-12-01 11:01 | NUR ---
1055 DRESSING CDI, REG DIET HAS BEEN ORDERED. TIME FRAME FOR RELEASE GIVEN.
--- NOTE | 2019-12-01 13:51 | NUR ---
1340 DC INSTS GIVEN VOICED UNDERSTANDING UP TO BR VOIDS GETTING DRESSED RELEASED IN WC
== END 2019-12-01 13:40 | disposition home or self-care (01) ==
LOC: D.SP 07:31 → D.CT 10:00 → D.SP 13:40
PROVIDERS: ATTEND Radiology Vascular & Interventional Radiology
DX: R18.8 Other ascites (principal)

== ENCOUNTER 2020-01-06 11:18 | Outpatient (CLI) | payer BC ==
[~2020-01-06] VITALS: Ht 172.7 cm; Wt 72.7 kg
[2020-01-06 12:09] LABS: INR 1.53 (0.85-1.17); PROTIME 18.3 SECONDS (11.6-15.0)
[2020-01-06 12:13] LABS: ALBUMIN 2.8 g/dL (3.4-5.0); ANION GAP 14.6 mmol/L (8-16); BILIRUBIN - TOTAL 3.18 mg/dL (0.2-1.3); CALCIUM 8.6 mg/dL (8.5-10.1); CARBON DIOXIDE 22.1 mmol/L (21.0-32.0); CREATININE - SERUM 2.1 mg/dL (0.6-1.3); POTASSIUM - SERUM 3.7 mmol/L (3.5-5.1); PROTEIN - SERUM 7.2 g/dL (6.4-8.2)
[2020-01-06 12:14] LABS: BASOPHILS 0.2 % (0-2); EOSINOPHILS 1.2 % (0-7); HEMATOCRIT 29.9 % (36.0-48.0); HEMOGLOBIN 9.7 g/dL (12-16); IMMATURE GRANULOCYTES 0.2 % (0-5); LYMPHOCYTES 25.4 % (15-50); MCH 32.6 pg (26.0-34.0); MCHC 32.4 g/dL (31.0-37.0); MCV 100.3 fL (80.0-100.0); MEAN PLATELET VOLUME 10.4 fL (7.4-10.4); MONOCYTES 6.6 % (2-11); NEUTROPHILS 66.4 % (40-80); PLATELET COUNT 114 10x3/uL (130-400); RBC 2.98 10x6/uL (4.00-5.40); RDW 15.8 % (11.5-14.5); WBC 5.8 10x3/uL (4.8-10.8)
[2020-01-06 12:50] VITALS: BP 127/77; Ht 172.7 cm; Wt 72.7 kg
--- NOTE | 2020-01-06 17:36 | NUR ---
2960-NO CHANGES,VSS, DENIES PAIN. DRESSING TO LEFT SIDE CDI
--- NOTE | 2020-01-06 17:36 | NUR ---
1530-FF TRAY TO ROOM. DENIES PAIN. VSS. CL IN EASY REACH. DRESSING TO LEFT SIDE CDI
--- NOTE | 2020-01-06 17:37 | NUR ---
1730-REMOVED IV WITH CATH INTACT,DISPOSED INTO SHARPS,COVERED WITH GUAZE,SECURED WITH MEDIPORE TAPE. AMBULATED TO RESTROOM WITH SLOW STEADY GAIT. ABLE TO VOID WITHOUT COMPLICATIONS.
--- NOTE | 2020-01-06 18:12 | NUR ---
1744-DISCHARGE CRITERIA MET. REVIEWED POST OPERATIVE INSTRUCTIONS. VERBALIZED UNDERSTANDING. ESCORTED OUT VIA W/C WITH LADY FRIEND AWAITING TO DRIVE HOME.
== END 2020-01-06 17:45 | disposition home or self-care (01) ==
LOC: D.SP 11:18 → D.CT 13:00 → D.SP 13:00
PROVIDERS: ATTEND Radiology Vascular & Interventional Radiology
DX: K70.31 Alcoholic cirrhosis of liver with ascites (principal); K21.9 Gastro-esophageal reflux disease without esophagitis